=== PATIENT | female | born 1935 | race Caucasian/White ===

== ENCOUNTER 2021-11-21 10:30 | Outpatient (RCR) | payer MEDICARE, OTHER, SELFPAY ==
--- NOTE | 2021-11-01 12:37 | OT.OPOE ---
OT Outpatient Ortho Eval OT Outpatient Ortho Eval Start: 11/01/21 07:27 Freq: Status: Active Protocol: Document 11/01/21 10:17 AMB (Rec: 11/01/21 12:33 AMB [id number]) E-signed By Kailee Villar, OTR/L, CLT, DIETETIC AIDE OT OP Ortho Eval Details Type Type Eval Complexity Low Outpatient History/Precautions Insurance Information Insurance Information Medicare B Current Condition/Medical Diagnosis Referring Provider MARY Chappell Treatment Diagnosis Closed treatment of a closed, acute, nondisplaced, intra- articular left DR Date of Onset 07/29/21 Other Precautions White coat syndrome without diagnosis of hypertension ( Acute) R03.0 Osteoporosis (Acute 10/14/08) M81.0 Hyperlipidemia (Acute 10/14/08 ) E78.5 Hiatal hernia (Acute 05/23/12) K44.9 Fracture of distal end of left radius (Acute) S52.502A Colon polyp (Acute 02/14/09) K63.5 Medical Contraindications Osteoporosis Medical/Functional History Medical History Reviewed Yes Ortho Subjective Subjective Subjective Pt states she was adjusting her curtains on 07/29/21 and when stepping down from the stool, she turned and slipped, falling to the ground on her left hand. Pt was casted until 09/21/21. Pt states she think she messed up. She heard the doctor tell her to schedule an appointment for 6 weeks out, she thought she was supposed to wait to start therapy, but that was for her ortho recheck. Pt feels she is doing well, doesn't always were splint anymore, feels very little if any pain and feels her wrist is moving pretty well. Still avoiding lifting heavy things. 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 Pt arrived 25 min late for OT eval today as [facility] as she thought therapy was in that building. Pain Assessment Pain Present Pain Present Pain Reported Location Left Wrist Description Dull, Achy Intensity Mild Hand Pinch/Track Man Strength Hand Right Track Man Strength Position 1 (lbs) 45 Lateral Pinch Strength (lbs) 10 Three Point Pinch (lbs) 11 Left Track Man Strength Position 1 (lbs) 20 Lateral Pinch Strength (lbs) 7 Three Point Pinch (lbs) 6 Comments Comments Track Man and pinch strength testing on the LUE was painful more because of the OA in the CMC joint than wrist fx. 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 OT Problems Problems Problems Decreased Strength,Decreased Range of Motion,Decreased Fine Motor,Gripping,Pinching Other Problems Opening Containers Patient Potential Good Assessment Assessment Assessment Pt presents to OT with pain, weakness and mild limitation in AROM of the LUE wrist / hand. Pt has difficulty with opening containers, gripping and pinching activities. Pt will benefit from skilled OT intervention to address deficits and restore full, pain-free use of LUE. Occupational Therapy Treatment Plan - OP Potential Rehabilitation Potential Good Set Goals Goals Set with Patient Yes Goals Goals 1. Pt will be independent and compliant with HEP in order to resume full, pain-free use of the involved UE. 3 weeks 2. Pt will demonstrate full, pain-free AROM of the involved UE in order to improve ability to grasp and hold. 6 weeks 3. Pt will demonstrate pain- free dispatcher refinery and pinch strength comparable to the uninvolved side in order to improve functional grasp, hold, reach, and lifting ability needed to complete self-care, leisure tasks, and work activities. 8 weeks. Target Date 01/01/22 Progress set Treatment Plan Treatment Plan Evaluation,Edema Control,Joint Mobilization,Manual Therapy, Splinting,Therapeutic Exercise ,Therapeutic Activities,Self- Care/Home Management Expected Frequency 1x Week Expected Duration 6-8 Weeks Certification Certification I Certify That: Therapy Services Provided, Therapy Plan Established, Therapy Plan Reviewed
== END 2021-11-21 15:33 | disposition home or self-care (01) ==
PROVIDERS: PCP Internal Medicine; Visit Provider Physician Assistant Surgical
DX: M81.0 Age-related osteoporosis without current pathological fracture (principal)
CPT/HCPCS: 97110; 97165; 97535; X5282

== ENCOUNTER 2022-04-03 07:34 | Outpatient (CLI) | payer MEDICARE, OTHER, SELFPAY ==
[2022-04-03 11:01] LABS: Cholesterol* 214 mg/dL (90-199); HDL Cholesterol* 68 mg/dL (>=50); LDL Cholesterol Calculated 127 mg/dL (<100); Triglycerides* 95 mg/dL (40-149)
[2022-04-03 11:21] LABS: Vitamin D 25 Hydroxy* 38 ng/mL (30-80)
== END 2022-04-03 07:35 | disposition home or self-care (01) ==
LOC: NFLDREF 07:34
PROVIDERS: PCP Internal Medicine; Visit Provider Internal Medicine
DX: M81.0 Age-related osteoporosis without current pathological fracture (principal); E78.5 Hyperlipidemia, unspecified; I10 Essential (primary) hypertension
CPT/HCPCS: 80061; 82306

== ENCOUNTER 2022-05-08 09:18 | Outpatient (CLI) | payer MEDICARE, OTHER, SELFPAY ==
[2022-05-08 11:35] LABS: Chloride* 105 mmol/L (96-114); Sodium* 136 mmol/L (135-149)
[2022-05-08 11:36] LABS: Potassium* 3.9 mmol/L (3.6-5.1)
[2022-05-08 11:38] LABS: Carbon Dioxide* 25 mmol/L (20-32); Creatinine* 0.3 mg/dL (0.5-1.5); Estimated Glomerular Filt Rate 104 ml/min
[2022-05-08 11:39] LABS: Blood Urea Nitrogen* 17 mg/dL (7-30); Calcium* 9.5 mg/dL (8.4-10.6); Glucose* 98 mg/dL (60-115)
== END 2022-05-08 09:19 | disposition home or self-care (01) ==
LOC: NFLDREF 09:26
PROVIDERS: PCP Internal Medicine; Visit Provider Internal Medicine
DX: I10 Essential (primary) hypertension (principal)
CPT/HCPCS: 80048

== ENCOUNTER 2022-05-17 14:43 | Emergency (ER) | payer MEDICARE, OTHER, SELFPAY ==
[2022-05-17] VITALS (31 sets, daily range): BP systolic 156–203; BP diastolic 72–87; PULSE 79–98; RESP 18–20; TEMP 37.2–38.1; O2SAT 88–100; BMI 26.5
--- NOTE | 2022-05-17 14:55 | CRLHL7_ITS ---
For Patients: As a result of the Century Cures Act, medical imaging exams and procedure reports are released immediately into your electronic medical record. You may view this report before your referring provider. If you have questions, please contact your health care provider. Indication: Fall, loss of consciousness Technique: Volumetric multidetector CT images of the cervical spine were obtained without the administration of IV contrast. Comparison: None available Findings: The cervical vertebral body heights are grossly maintained with endplate Schmorl`s defects. There is anterolisthesis of C4 on C5 and C5 on C6. There is no displaced fracture or dislocation. There is mild to moderate degenerative disc disease with disc height loss and marginal osteophyte formation. Moderate to severe degenerative changes at the atlantoaxial joint are appreciated. There is moderate to severe facet arthrosis. The paraspinous soft tissues are grossly within normal limits. Impression: [id number] degenerative changes of the cervical spine without acute osseous abnormality. Please note that all CT scans at this facility use dose modulation, iterative reconstruction, and/or weight-based dosing when appropriate to reduce radiation dose to as low as reasonably achievable. Dictated by Luis Snow MD @ 05/17/2022 3:41:02 PM (Electronically Signed)
--- NOTE | 2022-05-17 14:55 | CRLHL7_ITS ---
For Patients: As a result of the Century Cures Act, medical imaging exams and procedure reports are released immediately into your electronic medical record. You may view this report before your referring provider. If you have questions, please contact your health care provider. Indication: Fall, loss of consciousness Technique: Volumetric multidetector CT images of the facial bones were obtained without the administration of IV contrast. Comparison: None available. Findings: There is demonstration of a small arachnoid cyst in the anterior left middle cranial fossa. Otherwise the visualized brain parenchyma is grossly preserved and attenuation. There is mild chronic polypoid mucosal thickening within the paranasal sinuses. No significant air-fluid levels are appreciated. There is marked periorbital, preseptal soft tissue swelling. The bony orbits are otherwise grossly intact. The zygomatic arches are grossly intact. The bilateral maxillae are intact. The pterygoid plates are grossly intact. There are impacted fractures of the nasal bones extending into the anterior bony nasal septum. There is an avulsion injury of the anterior nasal spine. The mandible is grossly well located. The partially visualized cervical spine is grossly intact without displaced fracture. Impression: Mildly impacted fractures of the nasal bones, anterior nasal spine and anterior bony nasal septum with moderate facial soft tissue swelling and periorbital soft tissue swelling. No other displaced facial bony injuries are appreciated. Please note that all CT scans at this facility use dose modulation, iterative reconstruction, and/or weight-based dosing when appropriate to reduce radiation dose to as low as reasonably achievable. Dictated by Luis Snow MD @ 05/17/2022 3:36:34 PM (Electronically Signed)
--- NOTE | 2022-05-17 14:55 | CRLHL7_ITS ---
For Patients: As a result of the Century Cures Act, medical imaging exams and procedure reports are released immediately into your electronic medical record. You may view this report before your referring provider. If you have questions, please contact your health care provider. Indication: Fall, loss of consciousness Technique: Volumetric multidetector CT images of the head were obtained without the administration of low osmolar intravenous contrast. Comparison: None available Findings: Overall, there is moderately limited evaluation of the frontal and anterior convexity vertex due to extensive motion artifact and streak artifact. There is no obvious subdural or epidural collection; however, subtle subarachnoid hemorrhages may not be excluded. There is no mass effect or midline shift. There is age-related cortical atrophy with mild sulcal widening and ex vacuo dilatation of the lateral ventricles. There are chronic small vessel disease changes in the subcortical and periventricular white matter without lost ball-white differentiation. There is marked periorbital, preseptal soft tissue swelling. Limited evaluation of the frontal bone due to extensive motion artifact. Otherwise, the bony calvarium is grossly intact. Minimal polypoid mucosal thickening in the left maxillary sinus with a mildly impacted fracture of the nasal bones and bony nasal septum. The mastoid air cells are well aerated. Impression: Overall, partially nondiagnostic exam due to extensive motion artifact along the anterior and bilateral cerebral convexities. Grossly, no large subdural or epidural hemorrhages are appreciated; however, subtle subarachnoid or intraparenchymal hemorrhages may not entirely be excluded. Otherwise, no definite acute intracranial abnormalities appreciated. Age-related and chronic small-vessel disease changes are seen. Consider further evaluation with repeat exam for improved characterization motion artifact affected areas. Please note that all CT scans at this facility use dose modulation, iterative reconstruction, and/or weight-based dosing when appropriate to reduce radiation dose to as low as reasonably achievable. Dictated by Luis Snow MD @ 05/17/2022 3:20:30 PM (Electronically Signed)
--- NOTE | 2022-05-17 15:01 | ED_ITS ---
HPI - General Adult General Chief complaint: Syncope/Fainted Stated complaint: Fall Time Seen by Provider: 05/17/22 14:47 History of Present Illness HPI narrative: This 86-year-old woman comes in for evaluation from a fall that occurred at about 6:00 a.m. this morning, 8 hours prior to arrival. She states that she was up to get coffee and became lightheaded. She fell onto her face. She states that she did have loss of consciousness. She lives alone at home. She was able to get up without assistance. She thought about calling for some kind of ride to be evaluated but there was no response. This was not a 911 call or ambulance call. She states that she talked with her son later and now presents here with bruising around both eyes and an injury to her upper lip. The patient does not complain of headache. She does have some pain in her right shoulder causing difficulty for moving her right arm. She is not on blood thinners. A trauma team activation was initiated because of the appearance of her injuries. She arrives here with increased blood pressure and a temperature at 100.6? F. She denies having any respiratory symptoms except for some nasal congestion. She does not report any dysuria symptoms. Related Data Home Medications Medication Instructions Recorded Confirmed calcium carb-ergocalciferol (vit tab PO ONCE 09/21/21 05/08/22 D2) 600 mg calcium-200 unit tablet multivitamin with minerals 1 tab PO ONCE 09/21/21 05/08/22 (Multiple Vitamin-Minerals tablet) Previous Rx's Medication Instructions Recorded omeprazole 20 mg capsule,delayed 20 mg PO DAILY #90 caps 02/22/22 release simvastatin 10 mg tablet 10 mg PO .Bedtime #90 tabs 04/05/22 valsartan 160 1 tab PO QDAY #90 tabs 05/08/22 mg-hydrochlorothiazide 25 mg tablet Allergies Allergy/AdvReac Type Severity Reaction Status Date / Time Sulfa drugs Allergy Mild Unknown Uncoded 05/08/22 08:56 Review of Systems Status of ROS: Reports: 10 or more systems reviewed and unremarkable except as noted in History and below Narrative: Constitutional: No fevers, no weight gain or loss. Eyes: No discharge. No vision changes. HENT: No congestion, no sore throat, no ear pain. Cardiovascular: No chest pain, no palpitations. Respiratory: No shortness of breath, no wheezes, no cough. Gastrointestinal: No abdominal pain, no vomiting, no diarrhea. Genitourinary: No dysuria, no hematuria. Musculoskeletal: Right shoulder pain with associated decreased range of motion of her right arm. Skin: No rashes, no pruritis. Neurological: No dizziness, weakness, sensory change, speech change. Endo/Heme/Allergies: No bruising or bleeding. No polydipsia. Pysch: no suicidality, no anxiety, no insomnia. All other systems reviewed and are negative. [facility] Medical History (Updated 05/17/22 @ 16:58 by Chris Hines MD) History of colon polyps Surgical History (Updated 04/05/22 @ 10:21 by Sarah Lozano MD) History of cataract surgery Varicose veins of other specified sites (10/14/08) Family History Maternal Grandmother Thyroid cancer Paternal Grandmother Ovarian cancer Aunt Cancer Father Depression Mother No problems noted. Family/Other Ovarian cancer Other Breast cancer Heart problem High blood pressure Social History , MONICA) Narrative: Marital Status: Occupation: clinical laboratory scientists Alcohol Use: No Recreational Drug Use: No Smoking Status: Never smoker Do you use any of these nicotine containing products: None Second hand tobacco smoke exposure: No How often do you have a drink containing alcohol: never AUDIT-C Alcohol total score: 0 Non-prescribed substance use: denies use Little interest or pleasure in doing things: not at all Feeling down, depressed, or hopeless: several days Exam Narrative: Exam Narrative: Constitutional: Well-developed, well-nourished, no acute distress. HEENT: She has bruising around her eyes bilaterally. There is a small laceration on the inner and outer aspect of her upper lip. No scalp hematoma or laceration. Neck: Normal range of motion. Nontender. Supple. Heart: Regular. No murmurs. Normal rate. Intact distal pulses. Lungs: Clear to auscultation. No chest discomfort. No wheezes, rhonchi, or rales. Abdomen: Normal bowel sounds. Nontender. No rebound tenderness. Genitalia: Deferred. Back: No midline tenderness. Normal range of motion. Extremities: Pain with movement of her right arm. She reports diffuse tenderness in the anterior aspect of her right shoulder. There is no sign of deformity. Skin: Intact. No rash. Warm. No erythema or pallor. Neurologic: No altered sensation. No weakness. Alert and oriented. No facial asymmetry. Tongue is midline. Landscape Manager strength is equal bilaterally. Finge r-to-nose is normal. She is able to raise each leg to my hand. Psychiatric: No suicidality. No anxiety or depression. No insomnia. Nursing notes and vitals signs are reviewed. Const: Vital Signs, click to edit/add: Vital Signs - 24 hr 05/17/22 14:46 05/17/22 15:16 05/17/22 15:18 Temperature 100.6 F H Pulse Rate 93 89 Pulse Rate [Apical ] 98 Respiratory Rate 20 Blood Pressure 167/85 H Blood Pressure [Ri ght Upper Arm] 203/81 H Pulse Oximetry 97 97 97 05/17/22 15:20 05/17/22 15:22 05/17/22 15:23 Temperature Pulse Rate 90 92 90 Pulse Rate [Apical ] Respiratory Rate Blood Pressure 166/72 H Blood Pressure [Ri ght Upper Arm] Pulse Oximetry 97 97 98 05/17/22 15:33 05/17/22 15:40 05/17/22 15:41 Temperature Pulse Rate 84 83 85 Pulse Rate [Apical ] Respiratory Rate Blood Pressure 164/77 H Blood Pressure [Ri ght Upper Arm] Pulse Oximetry 99 98 98 05/17/22 15:42 05/17/22 15:43 05/17/22 15:50 Temperature Pulse Rate 85 82 79 Pulse Rate [Apical ] Respiratory Rate Blood Pressure 156/74 H Blood Pressure [Ri ght Upper Arm] Pulse Oximetry 98 96 99 05/17/22 15:52 05/17/22 15:54 05/17/22 16:00 Temperature Pulse Rate 83 82 Pulse Rate [Apical ] Respiratory Rate Blood Pressure 164/83 H Blood Pressure [Ri ght Upper Arm] Pulse Oximetry 98 98 05/17/22 16:02 05/17/22 16:17 05/17/22 16:18 Temperature Pulse Rate 83 84 Pulse Rate [Apical ] Respiratory Rate Blood Pressure 160/79 H 183/87 H Blood Pressure [Ri ght Upper Arm] Pulse Oximetry 97 97 05/17/22 16:20 05/17/22 16:22 05/17/22 16:23 Temperature Pulse Rate 85 82 83 Pulse Rate [Apical ] Respiratory Rate Blood Pressure 168/75 H Blood Pressure [Ri ght Upper Arm] Pulse Oximetry 100 99 99 05/17/22 16:30 05/17/22 16:32 Temperature 99.1 F Pulse Rate 86 86 Pulse Rate [Apical ] Respiratory Rate Blood Pressure 159/87 H Blood Pressure [Ri ght Upper Arm] Pulse Oximetry 98 98 Course Vital Signs Vital signs: Initial Vital Signs Temperature 100.6 F H 05/17/22 14:46 Temperature Source Temporal Artery Scan 05/17/22 14:46 Pulse Rate 98 05/17/22 14:46 Pulse Rhythm 05/17/22 14:46 Respiratory Rate 20 05/17/22 14:46 Blood Pressure 203/81 H 05/17/22 14:46 Blood Pressure Mean 121 05/17/22 14:46 Blood Pressure Position Supine 05/17/22 14:46 Pulse Oximetry 97 05/17/22 14:46 Vital Signs Temperature 100.6 F H 05/17/22 14:46 Pulse Rate 98 05/17/22 14:46 Respiratory Rate 20 05/17/22 14:46 Blood Pressure 203/81 H 05/17/22 14:46 Pulse Oximetry 97 05/17/22 14:46 Temperature 99.1 F 05/17/22 16:32 Pulse Rate 86 05/17/22 16:32 Respiratory Rate 20 05/17/22 14:46 Blood Pressure 159/87 H 05/17/22 16:32 Pulse Oximetry 98 05/17/22 16:32 Medical Decision Making MDM Narrative Medical decision making narrative: Primary Survey: Vital Signs are within normal limits. Airway: Open. Breathing: Easy. Circulation: no obvious bleeding; normal capillary refill. Disability: GCS is 15. Normal pupillary response and motor movements. Secondary Survey: Head: Bruising around both eyes, not completely typical of raccoon eyes type bruising. No sign of hematoma. Small laceration in the upper lip. Neck: No midline tenderness. ROM intact. Chest: Non tender. No external signs of trauma. Abdomen: Non tender. No rebound tenderness. Normal bowel sounds. Pelvis/Genitals: No tenderness to A/P and lateral stress. No blood at the urethral meatus. Extremities: Atraumatic. Back: No midline tenderness. No sign of injury. Primary and Secondary surveys are completed. The patient's GCS is 15. This patient comes in for evaluation of injuries from a fall that occurred early this morning. CT imaging of the head and C-spine returns with no acute findings. Facial bones show evidence of a minimally displaced nasal fracture. Her shoulder x-ray also is negative. The patient did arrive with a temperature at 100.6? but when this was read checked her temperature was found to be at 99.1. She had not had any medicine to reduce her temperature to bring about this 2nd reading. An IV was established and labs were drawn. Her lactate and white count return in normal range. She is not tripping triggers suspicious for sepsis. Blood cultures were obtained and results are pending nevertheless. At the time of discharge the patient appears safe for outpatient management. The treatment plan is reviewed along with written and verbal return precautions. Reasons to return and the importance of close followup were also reviewed. Lab Data Labs: Lab Results 05/17/22 05/17/22 05/17/22 Range/Units 14:53 15:24 15:24 WBC 5.65 (4.50-11.00) K/uL RBC 4.26 (4.00-5.20) m/uL Hgb 13.5 (12.0-16.0) gm/dL Hct 38.6 (33.0-51.0) % MCV 91 (80-100) fL MCH 32 (26-34) pg MCHC 35 (32-36) gm/dL RDW Coeff of Braxton 11.7 (11.5-15.5) % Plt Count 76 L (140-440) K/uL Neut % (Auto) 87.8 H (42.0-72.0) % Lymph % (Auto) 8.1 L (20-44) % [place] % (Auto) 3.4 (0.0-11.0) % Eos % (Auto) 0.0 (0.0-7.0) % Baso % (Auto) 0.2 (0.0-3.0) % Neut # (Auto) 5.00 (1.7-7.0) K/uL Lymph # (Auto) 0.50 L (0.90-2.90) K/uL [place] # (Auto) 0.20 (0.00-0.90) K/UL Eos # (Auto) 0.00 (0.00-0.50) K/uL Baso # (Auto) 0.01 (0.00-0.30) K/uL Sodium 129 L (135-149) mmol/L Potassium 3.8 (3.6-5.1) mmol/L Chloride 98 (96-114) mmol/L Carbon Dioxide 23 (20-32) mmol/L BUN 19 (7-30) mg/dL Creatinine 0.3 L (0.5-1.5) mg/dL Estimated Creat Clear 31.04 Estimated GFR 104 ml/min Glucose 148 H (60-115) mg/dL Lactate (0.5-1.9) mmol/L Calcium 8.8 (8.4-10.6) mg/dL Urine Color (Yellow) Urine Appearance (Clear) Urine pH (5.0-8.5) Ur Specific [place] (1.000-1.030) Urine Protein (Negative) Urine Glucose (UA) (Negative) Urine Ketones (Negative) Urine Blood (Negative) Urine Nitrite (Negative) Urine Bilirubin (Negative) Urine Urobilinogen (0.2-1.0) Ur Leukocyte Esterase (Negative) Urine RBC (0-2) Urine WBC (0-5) Ur Squamous Epith Cells (None-Few) Urine Bacteria (None) Urine Mucus (None) SARS-CoV-2 (PCR) Negative SARS-CoV-2 (Negative) 05/17/22 05/17/22 Range/Units 15:24 16:21 WBC (4.50-11.00) K/uL RBC (4.00-5.20) m/uL Hgb (12.0-16.0) gm/dL Hct (33.0-51.0) % MCV (80-100) fL MCH (26-34) pg MCHC (32-36) gm/dL RDW Coeff of Braxton (11.5-15.5) % Plt Count (140-440) K/uL Neut % (Auto) (42.0-72.0) % Lymph % (Auto) (20-44) % [place] % (Auto) (0.0-11.0) % Eos % (Auto) (0.0-7.0) % Baso % (Auto) (0.0-3.0) % Neut # (Auto) (1.7-7.0) K/uL Lymph # (Auto) (0.90-2.90) K/uL [place] # (Auto) (0.00-0.90) K/UL Eos # (Auto) (0.00-0.50) K/uL Baso # (Auto) (0.00-0.30) K/uL Sodium (135-149) mmol/L Potassium (3.6-5.1) mmol/L Chloride (96-114) mmol/L Carbon Dioxide (20-32) mmol/L BUN (7-30) mg/dL Creatinine (0.5-1.5) mg/dL Estimated Creat Clear Estimated GFR ml/min Glucose (60-115) mg/dL Lactate 1.2 (0.5-1.9) mmol/L Calcium (8.4-10.6) mg/dL Urine Color Yellow (Yellow) Urine Appearance Clear (Clear) Urine pH 6.0 (5.0-8.5) Ur Specific [place] 1.020 (1.000-1.030) Urine Protein 1+ A (Negative) Urine Glucose (UA) Negative (Negative) Urine Ketones 2+ A (Negative) Urine Blood Trace-intact A (Negative) Urine Nitrite Negative (Negative) Urine Bilirubin Negative (Negative) Urine Urobilinogen 0.2 (0.2-1.0) Ur Leukocyte Esterase Negative (Negative) Urine RBC 0-2 (0-2) Urine WBC 0-2 (0-5) Ur Squamous Epith Cells Few (None-Few) Urine Bacteria None (None) Urine Mucus Few A (None) SARS-CoV-2 (PCR) (Negative) Imaging Data CT scan - head: Radiologist's impression: Overall, partially nondiagnostic exam due to extensive motion artifact along the anterior and bilateral cerebral convexities. Grossly, no large subdural or epidural hemorrhages are appreciated; however, subtle subarachnoid or intraparenchymal hemorrhages may not entirely be excluded. Otherwise, no definite acute intracranial abnormalities appreciated. Age-related and chronic small-vessel disease changes are seen. Consider further evaluation with repeat exam for improved characterization motion artifact affected areas. CT Face: Radiologist's impression: Mildly impacted fractures of the nasal bones, anterior nasal spine and anterior bony nasal septum with moderate facial soft tissue swelling and periorbital soft tissue swelling. No other displaced facial bony injuries are appreciated. CT Cervical Spine: Radiologist's impression: [id number] degenerative changes of the cervical spine without acute osseous abnormality. XR R Shoulder: Radiologist's impression: No sign of acute injury. ECG Data Attestation: I personally reviewed and interpreted this ECG as follows: Interpretation: Sinus tachycardia, rate 102 beats per minute. There are no specific ST or T- wave abnormalities. Discharge Plan Discharge Clinical Impression: Closed fracture nasal bone, Syncope Patient Disposition: Home w/ Parent or Adult Condition: Stable Additional Instructions: Continue current plans. Use [id number] medicines as needed and directed. Follow up with MD to review medications. Return if recurrent or worsening symptoms happen. Prescriptions: No Action simvastatin 10 mg tablet 10 mg PO .Bedtime Qty: 90 3RF valsartan-hydrochlorothiazide 160-25 mg tablet 1 tab PO QDAY Qty: 90 3RF calcium carbonate-vitamin D2 600 mg calcium- 200 unit tablet PO ONCE Multiple Vitamin-Minerals Tablet 1 tab PO ONCE omeprazole 20 mg capsule,delayed release(DR/EC) 20 mg PO DAILY Qty: 90 3RF Rx Instructions: take on empty stomach 30-45 min before first meal of the day Follow Up/Referrals: Sarah Lozano MD [Primary Care Provider] - Stand Alone Forms: [employer] Info Instructions
--- NOTE | 2022-05-17 15:03 | CRLHL7_ITS ---
For Patients: As a result of the Cures Act, medical imaging exams and procedure reports are released immediately into your electronic medical record. You may view this report before your referring provider. If you have questions, please contact your health care provider. Indication: Fall, right shoulder pain.. Technique: Right shoulder, 3 views. Comparison: None. Findings: Bones: Alignment is normal. No fractures or bone lesions. Diffuse demineralization of the visualized bones. Joint spaces: Unremarkable. Soft tissues: Unremarkable. Impression: No sign of acute injury. Dictated by Jeremie Delvalle MD @ 05/17/2022 3:39:47 PM (Electronically Signed)
[2022-05-17 15:29] LABS: Lactate* 1.2 mmol/L (0.5-1.9)
[2022-05-17 15:34] LABS: Basophils Absolute Auto 0.01 K/uL (0.00-0.30); Basophils Percent Auto 0.2 % (0.0-3.0); Hematocrit 38.6 % (33.0-51.0); Hemoglobin* 13.5 gm/dL (12.0-16.0); Immature Granulocytes Abs Auto 0.03 K/uL (0.00-0.30); Immature Granulocytes Pct Auto 0.5 %; Lymphocytes Percent Auto 8.1 % (20-44); Mean Corpuscular HGB Conc 35 gm/dL (32-36); Mean Corpuscular Hemoglobin 32 pg (26-34); Mean Corpuscular Volume 91 fL (80-100); Monocytes Percent Auto 3.4 % (0.0-11.0); Neutrophils Percent Auto 87.8 % (42.0-72.0); Platelet Count* 76 K/uL (140-440); RDW Coefficient of Variation % 11.7 % (11.5-15.5); Red Blood Count 4.26 m/uL (4.00-5.20); White Blood Count* 5.65 K/uL (4.50-11.00)
[2022-05-17 15:35] LABS: Slide Review Reflex No
[2022-05-17 15:39] LABS: SARS PCR* Negative SARS-CoV-2 (Negative)
[2022-05-17 15:46] LABS: Chloride* 98 mmol/L (96-114); Potassium* 3.8 mmol/L (3.6-5.1); Sodium* 129 mmol/L (135-149)
[2022-05-17 15:49] LABS: Blood Urea Nitrogen* 19 mg/dL (7-30); Carbon Dioxide* 23 mmol/L (20-32); Creatinine* 0.3 mg/dL (0.5-1.5); Est. Creatinine Clearance* 31.04; Estimated Glomerular Filt Rate 104 ml/min; Glucose* 148 mg/dL (60-115)
[2022-05-17 15:50] LABS: Calcium* 8.8 mg/dL (8.4-10.6)
[2022-05-17 16:26] LABS: Appearance Urine Clear (Clear); Bilirubin Urine Negative (Negative); Blood Urine Trace-intact (Negative); Color Urine Yellow (Yellow); Glucose Urine Negative (Negative); Ketones Urine 2+ (Negative); Leukocyte Esterase Urine Negative (Negative); Nitrite Urine Negative (Negative); Protein Urine 1+ (Negative); Urobilinogen Urine 0.2 (0.2-1.0)
[2022-05-17 16:36] LABS: Mucus Urine Few; RBC Urine 0-2 (0-2); Squamous Epithelial Cell Urine Few (None-Few); WBC Urine 0-2 (0-5)
[2022-05-17] MEDS: ACETAMINOPHEN 500 MG TABLET 1000 MG PO (16:41)
== END 2022-05-17 17:24 | disposition home or self-care (01) ==
PROVIDERS: Emergency Provider Emergency Medicine Emergency Medical Services; PCP Internal Medicine
DX: S02.2XXA Fracture of nasal bones, initial encounter for closed fracture (principal); R55 Syncope and collapse
CPT/HCPCS: 36415; 70450; 70486; 72125; 73030; 80048; 81001; 83605; 85025; 87040; 87635; 93005; 99284; 99291; A9270

== ENCOUNTER 2022-05-21 13:36 | Outpatient (CLI) | payer MEDICARE, OTHER, SELFPAY ==
[2022-05-21 17:11] LABS: Albumin* 3.8 g/dL (3.3-5.0)
[2022-05-21 17:14] LABS: Alanine Aminotransferase* 53 U/L (4-35); Alkaline Phosphatase* 66 U/L (40-150); Aspartate Amino Transferase* 49 U/L (12-35); Bilirubin Direct* 0.1 mg/dL (0.0-0.5); Bilirubin Total* 0.5 mg/dL (0.1-1.5); Magnesium* 1.9 mg/dL (1.5-2.6); Total Protein* 6.8 g/dL (6.0-8.3)
[2022-05-21 17:56] LABS: TSH With Reflex to FT4* < 0.015 uIU/mL (0.270-4.200)
== END 2022-05-21 13:37 | disposition home or self-care (01) ==
PROVIDERS: PCP Internal Medicine; Visit Provider Internal Medicine
DX: R55 Syncope and collapse (principal); I10 Essential (primary) hypertension; E78.5 Hyperlipidemia, unspecified
CPT/HCPCS: 80076; 83735; 84439; 84443

== ENCOUNTER 2022-06-08 08:36 | Outpatient (CLI) | payer MEDICARE, OTHER, SELFPAY | END 2022-06-08 08:37 | disposition home or self-care (01) | LOC: RAD 08:37 | PROVIDERS: PCP Internal Medicine; Visit Provider Internal Medicine | DX: R55 Syncope and collapse (principal); I34.0 Nonrheumatic mitral (valve) insufficiency | CPT/HCPCS: 93306 ==

== ENCOUNTER 2022-06-22 13:45 | Outpatient (CLI) | payer MEDICARE, OTHER, SELFPAY ==
--- NOTE | 2022-06-22 14:00 | CRLHL7_ITS ---
For Patients: As a result of the Cures Act, medical imaging exams and procedure reports are released immediately into your electronic medical record. You may view this report before your referring provider. If you have questions, please contact your health care provider. BILATERAL SCREENING MAMMOGRAM WITH COMPUTER-AIDED DETECTION AND TOMOSYNTHESIS TECHNIQUE: CC and MLO views were obtained. These mammographic images have been obtained using full-field digital technique. These mammographic images were interpreted with the benefit of computer-aided detection. Breast Tomosynthesis was used in this interpretation. COMPARISON FILM: 04/26/21, 09/09/18, 09/10/17. FINDINGS: There are scattered areas of fibroglandular density IMPRESSION: There is no radiographic evidence for malignancy. ASSESSMENT: BI-RADS Category 1: Negative RECOMMENDATION: Routine screening mammogram in 1 year. A lay language report of this examination will be provided to the patient. Louie Marion M.D. Diagnostic Radiologist [email or web address] ELBERT/jelani Transcribed: 2:39 p.mTanya palomares/Dictated by: Louie Marion MD @ 06/25/2022 8:36:00 AM (Electronically Signed)
== END 2022-06-22 13:46 | disposition home or self-care (01) ==
LOC: MAMMO 13:46
PROVIDERS: PCP Internal Medicine; Visit Provider Internal Medicine
DX: Z12.31 Encounter for screening mammogram for malignant neoplasm of breast (principal)
CPT/HCPCS: 77063; 77067

== ENCOUNTER 2022-12-13 10:00 | Outpatient (RCR) | payer MEDICARE, OTHER, SELFPAY ==
--- NOTE | 2022-12-06 13:58 | PT.OPEX ---
PT [facility] PT [facility] Eval Start: 12/06/22 12:35 Freq: Status: Active Protocol: Document 12/06/22 12:35 CRP (Rec: 12/06/22 13:56 CRP [id number]) E-signed By Jordan Jackson PT Physical Therapy Outpatient Evaluation Insurance Information Recert Due Date 03/06/23 Insurance Name Medicare B Medical Diagnosis Mechanical Low back pain Referring MD Dr Lozano Subjective Subjective Pt c/o LBP that started about a week ago. Started after moving some stuff around in her garage. Pain is across the low back. Is now tacking tylenol 3x/day as directed by her Dr. There was no pain while she was working in her garage. Pain came on the next morning. Pain now is waking her up in the middle of the night. Pain is most noticeable with bending and lifting. Walking is OK and sitting is not painful. Pain can fluctuate throughout the day. Pain range from 2-8/10. Pt reports she is more sedentary than she should be. Normally she would be walking 20-60 minutes per day but now she has been holding off on walking for exer. Needs to do stairs almost side ways because it is painful going straight up and down the stiars. Pain Comments 2-8/10 Current Work Status Retired Objective Range of Motion Trunk ROM Flex min dec with LBP Ext isaak dec with LBP R SB painful on R L SB min dec Hip ROM WNL bilat - pt had times of sharp sudden pains going in and out of L hip flex/ext Strength R LE WNL L hip flex - severe LBP - no further MMT for L LE Palpation Pain along R SI and at lower lumbar Posture Pt shows posture WNL - Transitioning from one position to another created significant pain sharp stabbing pains Functional Test Performed & Score Sit to stand - WNL Sit<> Supine - moments of severe pain Scooting in bed - moments of severe pain Assessment Assessment/Impression Pt presents to the clinic with signs and sxs consistent with mechanical LBP. Pain most limiting with transitional movements without any specific exercise preference pattern. At this time it was difficult getting her progressing with exer as she was struggling with moments of severe-sudden- stabbing pains at the low back . PT will progress slowly with rehab as able. A message was left for Dr Lozano in regards to the degree at which Sofía is struggling with these fdwvxm-jownxg-ygegtsiw pains. Primary Functional Limitations Transitional movements Gait Plan of Care Rehabilitation Potential Good Physical Therapy Goals 1. Pt will complete HEP with 100% independence in 4 weeks 2. Pt will return to her normal walking program in 8 weeks 3. 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
== END 2023-04-08 11:11 | disposition home or self-care (01) ==
PROVIDERS: PCP Internal Medicine; Visit Provider Internal Medicine
DX: M54.59 Other low back pain (principal); Z51.89 Encounter for other specified aftercare
CPT/HCPCS: 97110; 97162

== ENCOUNTER 2023-04-03 08:21 | Outpatient (CLI) | payer MEDICARE, OTHER, SELFPAY ==
--- OUTSIDE RECORDS SUMMARY | 2023-04-05 10:33 | XMS_ITS | Clinical Summary ---
Author Name Unknown Organization [facility] Address [place], [place] [address] Care Team Providers Care Nursing Resident Name Role Phone Sarah Lozano MD Primary Care Provider [phone]- [phone] Encounters Date Type Department Care Team Description 03/28/2023 8:00 AM DIRECTOR OF EMPLOYEE DEVELOPMENT Office Visit [facility] [address] [place] [address] [facility] 03/28/2023 Travel 03/01/2023 8:00 AM DIRECTOR OF EMPLOYEE DEVELOPMENT Office Visit [facility] [address] [place] [address] [employer] 03/01/2023 Travel 02/08/2023 8:00 AM DIRECTOR OF EMPLOYEE DEVELOPMENT Office Visit [facility] [address] [place] [address] [facility] [facility] (Fitting) 02/08/2023 Travel 01/17/2023 9:00 AM CDT Office Visit [facility] [address] [place] [address] [employer] (Consultation) 01/17/2023 Travel from Last 3 Months Social History Tobacco Use Types Packs/Day Years Used Date Smoking Tobacco: Never Assessed Social Connections Answer Date Recorded Frequency of Communication with Friends and Fami ly Not on file 07/13/2022 Sex and Gender Information Value Date Recorded Sex Assigned at Not on file Gender Identity Not on file Sexual Orientation Not on file Plan of Treatment Health Maintenance Due Date Last Done Comments Tdap 08/11/1946 Depression screening for age 12+ 1948 BMI (ht and wt on same day) for age 18+ 1954 Tetanus booster 1956 Zoster (shingles) series for age 50+ (1 of 2) 1986 DEXA/DXA scan for age 65+ 2001 Medicare Wellness for age 65+ 2001 Pneumococcal series for age 65+ (1 of 1 - PCV) 2001 Influenza for age 65+ 11/23/2022 COVID-19 vaccine series Completed 01/15/20 23, 07/30/2022, 12/20/2021, Additional history exists Care Teams Nursing Resident Relationship Specialty Start Date End Date Sarah Lozano MD [address] [place] [address] PCP - General Internal Medicine 08/23/16
== END 2023-04-03 08:22 | disposition home or self-care (01) ==
LOC: NFLDREF 04-05 10:31
PROVIDERS: PCP Internal Medicine; Referring Provider Internal Medicine; Visit Provider Internal Medicine
DX: I10 Essential (primary) hypertension (principal); E78.5 Hyperlipidemia, unspecified; M85.80 Other specified disorders of bone density and structure, unspecified site
CPT/HCPCS: 80048; 80061; 82306

== ENCOUNTER 2023-06-27 12:26 | Outpatient (CLI) | payer MEDICARE, OTHER, SELFPAY ==
--- NOTE | 2023-06-27 13:00 | XR_ITS ---
Patient: MICHELLE JAMES Facility:?[facility] Patient ID:?[id number] Site Patient ID:?[id number]. Site :?[id number] Study:?DEXA-Bone Density -06/27/2023 3:05:39 PM Ordering Physician:COREEN Final Report: DXA BONE MINERAL DENSITY STUDY Reason for exam: Osteoporosis. Current height (in): 60.5. Weight (lb): 125. Menopause age: 46. Ethnicity: White. 1. Have you had a previous hip or vertebral fracture? No. 2. Have you had any fractures during your adult life which did not result from significant trauma (e.g., auto accident)? No. 3. Did either of your parents have a hip fracture? No. 4. Do you smoke? No. 5. Have you ever taken Glucocorticoids? No. 6. Do you have rheumatoid arthritis? No. 7. Do you have secondary osteoporosis? No. 8. Do you drink 3 or more alcoholic drinks per day? No. 9. Are you being treated for osteoporosis? Yes. 10. Have you ever taken any of the following medications: Actonel, Evista, Fosamax, Miacalcin, Reclast, Boniva, Forteo, HRT (i.e. estrogen/hormone therapy), Protelos, Prolia, Vitamin D, Calcium, other ? please specify. ANSWER: Yes, Fosamax, vitamin D and calcium. 11. Do you have any of the following medical conditions: Anorexia or bulimia, asthma or emphysema, end stage renal disease, hyperparathyroidism, any seizure disorders, cancer, inflammatory bowel diseases, hysterectomy, other ? please specify. ANSWER: No. 12. What was your maximum height (inches)? 62. 13. Do you perform weight bearing exercise regularly? Yes. 14. Do you regularly consume dairy products? Yes. 15. Do you drink caffeinated beverages? Yes. 16. At what age did your period start? 10.5. 17. Are you premenopausal? No. 18. How many full term pregnancies have you had? 3. 19. Have you ever missed your period for more than 6 months in a row (not including or menopause)? No. TECHNIQUE: Bone mineral density study was performed using the [employer]. FINDINGS: The results of the study expressed as bone mineral density (BMD) are as follows: Lumbar spine L1 to L4: BMD: 0.748 g/cm2. T-score: -2.7. Z-score: 0.2. Neck Left: BMD: 0.686 g/cm2. T-score: -1.5. Z-score: 1.1. Right: BMD: 0.620 g/cm2. T-score: -2.1. Z-score: 0.5. Total Left: BMD: 0.763 g/cm2. T-score: -1.5. Z-score: 0.9. Right: BMD: 0.777 g/cm2. T-score: -1.4. Z-score: 1.0. IMPRESSION: Osteoporosis. *Comparison exams done prior to 08/2019 were performed on different unit, [facility]. COMPARISON: Compared with scan of 04/26/2021, the bone mineral density has decreased by 8.5 percent at the spine and no change at 0.0 percent at the hip. Compared with scan of 09/05/2017, the bone mineral density has increased by 2.5 percent at the spine and increased by 1.5 percent at the hip. Louie Marion M.D. Diagnostic Radiologist [email or web address] ELBERT/sp D& Transcribed: 5:39 p.m. SP/Dictated by: Louie Marion MD @ 06/28/2023 1:43:00 PM Signed by:Masha Marion MD @06/28/2023 6:06:12 PM (Electronic Signature)
--- NOTE | 2023-06-27 13:40 | MM_ITS ---
Patient: MICHELLE JAMES Facility:?[facility] Patient ID:?[id number] Site Patient ID:?[id number]. Site :?[id number] Study:?XRay-Breast Bilateral 3D W/CAD-06/27/2023 1:48:12 PM Ordering Physician:Sarah Pickering Final Report: BILATERAL SCREENING MAMMOGRAM WITH COMPUTER-AIDED DETECTION AND TOMOSYNTHESIS TECHNIQUE: CC and MLO views were obtained. These mammographic images have been obtained using full-field digital technique. These mammographic images were interpreted with the benefit of computer-aided detection. Breast Tomosynthesis was used in this interpretation. COMPARISON FILM: 06/22/22, 04/26/21, 09/09/18. FINDINGS: There are scattered areas of fibroglandular density. IMPRESSION: There is no radiographic evidence for malignancy. ASSESSMENT: BI-RADS Category 1: Negative RECOMMENDATION: Routine screening mammogram in 1 year. A lay language report of this examination will be provided to the patient. Louie Marion M.D. Diagnostic Radiologist [email or web address] DSM/sp R& Transcribed: 12:03 p.m. SP/Dictated by: Louie Marion MD @ 06/28/2023 10:35:00 AM Signed by:Masha Marion MD @06/28/2023 12:07:00 PM (Electronic Signature)
== END 2023-06-27 12:27 | disposition home or self-care (01) ==
LOC: RAD 12:27
PROVIDERS: PCP Internal Medicine; Visit Provider Internal Medicine
DX: Z12.31 Encounter for screening mammogram for malignant neoplasm of breast (principal); M81.0 Age-related osteoporosis without current pathological fracture
CPT/HCPCS: 77063; 77067; 77080

== ENCOUNTER 2024-04-15 07:38 | Outpatient (CLI) | payer MEDICARE, OTHER, SELFPAY | END 2024-04-15 07:39 | disposition home or self-care (01) | LOC: NFLDREF 04-24 08:18 | PROVIDERS: PCP Internal Medicine; Referring Provider Internal Medicine; Visit Provider Internal Medicine | DX: I10 Essential (primary) hypertension (principal); M85.80 Other specified disorders of bone density and structure, unspecified site; E78.5 Hyperlipidemia, unspecified | CPT/HCPCS: 80048; 80061; 82306 ==

== ENCOUNTER 2024-07-24 07:59 | Outpatient (CLI) | payer MEDICARE, OTHER, SELFPAY ==
--- NOTE | 2024-07-24 08:15 | CRLHL7_ITS ---
For Patients: As a result of the Century Cures Act, medical imaging exams and procedure reports are released immediately into your electronic medical record. You may view this report before your referring provider. If you have questions, please contact your health care provider. INDICATION: BILATERAL SCREENING MAMMOGRAM, ASYMPTOMATIC 88 Y/O FEMALE COMPARISON: 06/27/23, 06/22/22, 04/26/21 TECHNIQUE: CC and MLO views were obtained. These mammographic images have been obtained using full-field digital technique. These mammographic images were interpreted with the benefit of computer aided detection and tomosynthesis. BREAST COMPOSITION: There are scattered areas of fibroglandular density. FINDINGS: No suspicious findings. ASSESSMENT: BI-RADS 1 Negative RECOMMENDATION: Annual screening mammogram. A lay language report of this examination will be provided to the patient. Dictated by: Louie Marion MD @ 07/28/2024 12:18:21 (Electronically Signed)
== END 2024-07-24 08:00 | disposition home or self-care (01) ==
LOC: MAMMO 08:00
PROVIDERS: PCP Internal Medicine; Visit Provider Internal Medicine
DX: Z12.31 Encounter for screening mammogram for malignant neoplasm of breast (principal)
CPT/HCPCS: 77063; 77067

== ENCOUNTER 2024-10-08 08:05 | Outpatient (CLI) | payer MEDICARE, OTHER, SELFPAY | END 2024-10-08 08:06 | disposition home or self-care (01) | PROVIDERS: PCP Internal Medicine; Visit Provider Family Medicine | DX: S09.93XA Unspecified injury of face, initial encounter (principal); W18.30XA Fall on same level, unspecified, initial encounter; Y92.008 Other place in unspecified non-institutional (private) residence as the place of occurrence of the external cause | CPT/HCPCS: A0425; A0427 ==

== ENCOUNTER 2024-10-08 08:39 | Emergency (ER) | payer MEDICARE, OTHER, SELFPAY ==
[2024-10-08] VITALS (23 sets, daily range): BP systolic 159–205; BP diastolic 79–124; PULSE 81–93; RESP 10–29; TEMP 36.1; O2SAT 96–99; BMI 24.7
--- OUTSIDE RECORDS SUMMARY | 2024-10-08 08:41 | XMS_ITS | Clinical Summary ---
Author Organization [employer] [facility] Address [address] [place] [id number] Care Team Providers Care Waistline Joiner Name Role Phone Sarah Lozano MD Primary Care Provider +1- [phone] Social History Tobacco Use Types Packs/Day Years Used Date Smoking Tobacco: Never Assessed Social Connections Answer Date Recorded Frequency of Communication with Friends and Fami ly Not on file 07/13/2022 Comments Unknown Sex and Gender Information Value Date Recorded Sex Assigned at Not on file Legal Sex Female 6:31 AM PACKAGE PICK UP Gender Identity Not on file Sexual Orientation Not on file Plan of Treatment Health Maintenance Due Date Last Done Comments Tetanus booster 08/11/1946 Depression screening for age 12+ 1948 BMI (ht and wt on same day) for age 18+ 1954 Pneumococcal series for age 50+ (1 of 1 - PCV) 1986 Zoster (shingles) series for age 50+ (1 of 2) 1986 DEXA/DXA scan for age 65+ 2001 Medicare Wellness for age 65+ 2001 RSV vaccine for adults or (1 - 1-dose 75+ series) 08/11/2011 COVID-19 vaccine series ( season) 2024 01/08/2024, 07/16/2023, 01/14/2023, Additional history exists Influenza Vaccine (#1) 2024 Hepatitis B series for 19+ Aged Out N o longer eligible based on patient's age to complete this topic Insurance MEDICARE PART A HB ONLY MEDICARE PART B HB ONLY MEDICARE PB ONLY Care Teams Waistline Joiner Relationship Specialty Start Date End Date Sarah Lozano MD [address] [place] [address] PCP - General Internal Medicine 08/23/16
--- NOTE | 2024-10-08 08:48 | CRLHL7_ITS ---
For Patients: As a result of the Cures Act, medical imaging exams and procedure reports are released immediately into your electronic medical record. You may view this report before your referring provider. If you have questions, please contact your health care provider. INDICATION: Fall. COMPARISON: 05/17/2022 TECHNIQUE: CT of the cervical spine without contrast. Multiplanar axial, coronal, and sagittal reformats were reconstructed. FINDINGS: No fracture. Normal alignment. Multilevel disc degenerative change. Multilevel facet arthritis. No severe osseous neural foraminal narrowing. No significant central canal stenosis. No destructive bony lesions. No cervical prevertebral soft tissue swelling. IMPRESSION: No acute or traumatic findings on cervical spine CT. Please note that all CT scans at this facility use dose modulation, iterative reconstruction, and/or weight-based dosing when appropriate to reduce radiation dose to as low as reasonably achievable. Dictated by Day King MD @ 10/08/2024 9:24:49 AM (Electronically Signed)
--- NOTE | 2024-10-08 08:48 | CRLHL7_ITS ---
For Patients: As a result of the Century Cures Act, medical imaging exams and procedure reports are released immediately into your electronic medical record. You may view this report before your referring provider. If you have questions, please contact your health care provider. INDICATION: Fall. COMPARISON: 05/17/2022 TECHNIQUE: CT of the facial bones without contrast. Multiplanar axial, coronal, and sagittal reformats were reconstructed. Contrast: None. FINDINGS: BONES: Healed nasal bone fracture. There is some residual deformity of the nasal bones. No focal bone lesions. Normal temporomandibular joint alignment. ORBITS AND GLOBES: Right eye: Normal shape and position of globe. The lens is orthotopically located. No retrobulbar hematoma. The extraocular muscles have a normal course and caliber without signs of entrapment. Left eye: Normal shape and position of globe. The lens is orthotopically located. No retrobulbar hematoma. The extraocular muscles have a normal course and caliber without signs of entrapment. TEMPORAL BONES: Right ear: The external auditory canal is patent. There is normal pneumatization and aeration of the mastoid air cells and middle ear cavity. The ossicles appear normally positioned. The semicircular canals and cochlea are normally formed. No bony dehiscence. The vestibular aqueduct is of a normal size. The bony internal auditory canal is normal. Left ear: The external auditory canal is patent. There is normal pneumatization and aeration of the mastoid air cells and middle ear cavity. The ossicles appear normally positioned. The semicircular canals and cochlea are normally formed. No bony dehiscence. The vestibular aqueduct is of a normal size. The bony internal auditory canal is normal. PARANASAL SINUS: Small left maxillary mucocele. The nasal septum is not deviated. SOFT TISSUES: No soft tissue swelling. No soft tissue mass. No foreign body. Normal appearance of the parotid and salivary glands. DENTITION: No abscess. IMPRESSION: No acute facial bone fractures. Please note that all CT scans at this facility use dose modulation, iterative reconstruction, and/or weight-based dosing when appropriate to reduce radiation dose to as low as reasonably achievable. Dictated by Day King MD @ 10/08/2024 9:30:27 AM (Electronically Signed)
--- NOTE | 2024-10-08 08:48 | CRLHL7_ITS ---
For Patients: As a result of the Century Cures Act, medical imaging exams and procedure reports are released immediately into your electronic medical record. You may view this report before your referring provider. If you have questions, please contact your health care provider. INDICATION: Fall. COMPARISON: Same-day head CT and cervical spine CT, prior head CT and facial bone CT 05/17/2022 TECHNIQUE: CT of the brain / head without intravenous contrast. Multiplanar axial, coronal, and sagittal reformats were reconstructed. FINDINGS: No intracranial hemorrhage. Age-related parenchymal atrophy. No acute or subacute cortically based infarct. Scattered white matter hypodensities may be related to chronic microvascular ischemia. No mass or mass effect. Normal ventricles. No skull fractures. No worrisome focal bone lesion. Chronic healed nasal bone fractures. Please see facial bone CT for more details. IMPRESSION: No intracranial hemorrhage. No calvarial fractures. Please note that all CT scans at this facility use dose modulation, iterative reconstruction, and/or weight-based dosing when appropriate to reduce radiation dose to as low as reasonably achievable. Dictated by Day King MD @ 10/08/2024 9:21:58 AM (Electronically Signed)
--- NOTE | 2024-10-08 08:51 | ED.GENADULT ---
HPI - General Adult General Chief complaint: Fall/Minor Trauma Stated complaint: Fall Time Seen by Provider: 10/08/24 08:42 History of Present Illness HPI narrative: 81-year-old woman presenting to the emergency department following a fall. Trauma team activation upon arrival. Arrives via EMS. Apparently was out for a walk this morning. Was found on the ground by a neighbor who alerted EMS. Does not recall events around this fall. Presumed loss of consciousness. No sense of chest pain or shortness of breath. Currently with some pain in her face where she seems to have fallen on her mouth and left cheek/infraorbital area. Has sustained lacerations to lips it appears. Without neck back or abdominal pain. No visual changes. Related Data Home Medications ?Medication ?Instructions ?Recorded ?Confirmed calcium carb-ergocalciferol (vit tab PO DAILY 05/04/24 06/08/24 D2) 600 mg calcium-200 unit tablet multivitamin with minerals 1 tab PO DAILY 05/04/24 06/08/24 (Multiple Vitamin-Minerals tablet) amlodipine 5 mg tablet 5 mg PO DAILY 10/08/24 10/08/24 simvastatin 10 mg tablet 10 mg PO HS 10/08/24 10/08/24 valsartan 80 mg tablet 80 mg PO DAILY 10/08/24 10/08/24 Previous Rx's ?Medication ?Instructions ?Recorded alendronate 70 mg tablet 70 mg PO QWEEK #12 tabs 05/04/24 omeprazole 20 mg capsule,delayed 20 mg PO DAILY #90 caps 05/04/24 release Allergies Allergy/AdvReac Type Severity Reaction Status Date / Time Sulfa (Sulfonamide Allergy Verified 06/08/24 13:31 Antibiotics) Review of Systems Status of ROS: Reports: 6 or more systems reviewed and unremarkable except as noted in History and below [facility] Medical History History of colon polyps ?Z86.010 - Personal history of colonic polyps (ICD-10) Surgical History History of cataract surgery ?Z98.49 - Cataract extraction status, unspecified eye (ICD-10) Varicose veins of other specified sites (10/14/08) ?I86.8 - Varicose veins of other specified sites (ICD-10) Social History What is your current living situation?: I presently have a place to live Problems where you live: no known problems In the past 12 months, utilities in danger of being shut off: no In past 12 months, lack of transportation kept you from medical appts, meetings, work, or getting things needed for daily living: no In the past 12 mos, have been you worried that your food would run out before you had money to buy more?: never true In the past 12 mos, the food you bought just didn't last and you didn't have money to buy more?: never true Smoking Status: Unknown if ever smoked How often does anyone, including family, friends and others, physically hurt you: never How often does anyone, including family, friends and others, insult or talk down to you: never How often does anyone, including family, friends and others, threaten you with harm: never How often does anyone, including family, friends and others, scream or curse at you: never Exam Narrative: Exam Narrative: Primary survey Vitals are noted. Is breathing easily. Airway appears to be open. Has dried blood on her white T-shirt and blood about her face. Laceration apparent at her lip. GCS of 15. Pupils are brisk and equal. Eyes are bright consistent with lens implantation. Moving all extremities voluntarily with good strength. Secondary survey Cranial nerves 2-12 intact Head with dried blood about as noted. She has a 1 cm laceration that I think is from Internal puncture of her lip. This is at the left upper lip. Inverting the lip shows laceration extending to the vermilion aspect of her lip from inside. T-shaped total 3.5 cm. Bleeds lightly. Dentition is sore in the anterior left upper teeth but appears to be intact without any movement. Light bruising with mild discomfort to palpation at the left infraorbital rim outer aspect. Extraocular movements are full. Neck is without tenderness in a C-collar. No fluid at external ear canals. No Blanco sign. Lungs are clear. Heart in regular rhythm but seems to have some ectopic beats. No pain to palpation about the clavicles or shoulders. No pain to palpation of arms or legs. She does have a light abrasion at the upper right knee and maybe a subtle on the upper left knee. No swelling here. No pain to palpation over the chest or abdomen which is soft. No pain or instability to palpation over hips. Back is also nontender to palpation and without deformity. [place] woozy or little dizzy when went to sit up. Const: Vital Signs, click to edit/add: Vital Signs - 24 hr 10/08/24 08:48 10/08/24 08:50 10/08/24 08:53 Temperature 96.9 F L Pulse Rate 90 Pulse Rate [Pulse Oximeter] 93 Pulse Rate [orthos tatic lying] Pulse Rate [orthos tatic sitting] Pulse Rate [orthos tatic standing] Respiratory Rate 22 18 24 Blood Pressure 198/110 H 204/117 H Blood Pressure [Le ft Upper Arm] 198/110 H Blood Pressure [or thostatic lying] Blood Pressure [or thostatic sitting] Blood Pressure [or thostatic standing ] Pulse Oximetry 97 [facility] 10/08/24 09:12 10/08/24 09:16 10/08/24 09:18 Temperature Pulse Rate 87 90 87 Pulse Rate [Pulse Oximeter] Pulse Rate [orthos tatic lying] Pulse Rate [orthos tatic sitting] Pulse Rate [orthos tatic standing] Respiratory Rate 12 29 H 21 Blood Pressure 193/98 H 205/103 H 203/112 H Blood Pressure [Le ft Upper Arm] Blood Pressure [or thostatic lying] Blood Pressure [or thostatic sitting] Blood Pressure [or thostatic standing ] Pulse Oximetry 97 96 98 [facility] 10/08/24 09:19 10/08/24 09:26 10/08/24 09:32 Temperature Pulse Rate 83 Pulse Rate [Pulse Oximeter] Pulse Rate [orthos tatic lying] 88 Pulse Rate [orthos tatic sitting] 88 Pulse Rate [orthos tatic standing] 87 Respiratory Rate 13 Blood Pressure 196/112 H 162/124 H Blood Pressure [Le ft Upper Arm] Blood Pressure [or thostatic lying] 205/103 H Blood Pressure [or thostatic sitting] 203/112 H Blood Pressure [or thostatic standing ] 196/112 H Pulse Oximetry 98 [facility] 10/08/24 09:42 10/08/24 09:53 10/08/24 10:00 Temperature Pulse Rate 82 85 84 Pulse Rate [Pulse Oximeter] Pulse Rate [orthos tatic lying] Pulse Rate [orthos tatic sitting] Pulse Rate [orthos tatic standing] Respiratory Rate 12 12 17 Blood Pressure 176/90 H 187/90 H Blood Pressure [Le ft Upper Arm] Blood Pressure [or thostatic lying] Blood Pressure [or thostatic sitting] Blood Pressure [or thostatic standing ] Pulse Oximetry 98 98 98 Oxygen Delivery Me [facility] 10/08/24 10:02 10/08/24 10:13 10/08/24 10:22 Temperature Pulse Rate 84 85 84 Pulse Rate [Pulse Oximeter] Pulse Rate [orthos tatic lying] Pulse Rate [orthos tatic sitting] Pulse Rate [orthos tatic standing] Respiratory Rate 11 L 10 L 13 Blood Pressure 186/90 H 187/79 H 180/84 H Blood Pressure [Le ft Upper Arm] Blood Pressure [or thostatic lying] Blood Pressure [or thostatic sitting] Blood Pressure [or thostatic standing ] Pulse Oximetry 97 98 99 Oxygen Delivery Me thod 10/08/24 10:32 Temperature Pulse Rate 82 Pulse Rate [Pulse Oximeter] Pulse Rate [orthos tatic lying] Pulse Rate [orthos tatic sitting] Pulse Rate [orthos tatic standing] Respiratory Rate 20 Blood Pressure 184/86 H Blood Pressure [Le ft Upper Arm] Blood Pressure [or thostatic lying] Blood Pressure [or thostatic sitting] Blood Pressure [or thostatic standing ] Pulse Oximetry 99 Oxygen Delivery Me [facility] Documenting provider has reviewed patient's vital signs: yes Course Vital Signs Vital signs: Initial Vital Signs Respiratory Rate 10/08/24 08:48 Blood Pressure 198/110 H 10/08/24 08:48 Blood Pressure Mean 139 H 10/08/24 08:48 Vital Signs Respiratory Rate 10/08/24 08:48 Blood Pressure 198/110 H 10/08/24 08:48 Temperature 96.9 F L 10/08/24 08:50 Pulse Rate 90 10/08/24 13:02 Respiratory Rate 11 L 10/08/24 13:02 Blood Pressure 168/81 H 10/08/24 13:02 Pulse Oximetry 97 10/08/24 13:02 Oxygen Delivery Method Room Air 10/08/24 08:50 Medications Administered Medications: Discontinued Medications Generic Name Dose Route Start Last Admin Trade Name Freq PRN Reason Stop Dose Admin Sodium Chloride 500 mls @ 1,000 mls/hr 10/08/24 10:14 10/08/24 10:50 0.9 % Sodium Chloride 500 Ml IV 10/08/24 10:43 Infused .Q30M ONE Infusion Medical Decision Making MDM Narrative Medical decision making narrative: Will need repair of her lip. Dentition looks intact; possibly concussed. Will need to image head face and neck. Monitor on monitoring coordinator for potential event. Mentating well. Unclear with loss of consciousness and memory around this event whether not fall was related to primary syncopal event or trip and fall closed head injury and loss of consciousness. Initial EKG generally reviewed by me looks shows sinus rhythm; she does have PVC. Rate of 90. I do not see acute ischemic changes here. Family consulted. Apparently has been having some dizzy spells intermittent for some time. Orthostatics are normal although does feel little woozy when she goes to sit up Did independently review images. No acute abnormality appreciated. Radiology over-read cervical spine CT, facial CT, head CT is without acute abnormalities. Did return to place an infraorbital block below the left eye; buccal approach. Injected a weal of 1.5 mL. Well tolerated. Reassessment has resulted with good anesthesia to the buccal surface of the lip but still little sensitive to the laceration on the skin surface of the lip. Did place another mL of lidocaine into the skin surface of her lip. Adequate anesthesia achieved. Proceeded with cleansing with Shur-Clens equivalent solution. Sutured with 6 0 Vicryl interrupted sutures to repair buccal mucosa. External laceration closed with 2 5-0 interrupted Ethilon sutures. Good wound approximation. Bleeding controlled. Well tolerated. No events on monitoring coordinator during time of monitoring in emergency department. Over time more bruising noted at her left chin and bruising and swelling increasing in the left periorbital area. Ice pack dispensed. She was able to ambulate about the emergency department quite well at least with a walker. There is a walker present in the home. Son will be with her in the short term. I expect these sutures placed inside your lip to dissolve/fall out. The ones on the outside can be removed in 6-7 days. Consider keeping this wound moist with antibiotic ointment for for 5 days. Otherwise keep abraded lips moistened with white petroleum jelly or similar. Take care in transitions. I do think that at least in the short term you need to be very careful in getting about and only with your 's walker; I would ask somebody to go to the basement to retrieve it for you. Stay well-hydrated. Return for severe headache, visual changes, repeated vomiting, worsening weakness. Lab Data Labs: Lab Results 10/08/24 10/08/24 10/08/24 Range/Units 08:48 08:50 09:25 WBC 5.49 (4.50-11.00) K/uL RBC 4.39 (4.00-5.20) m/uL Hgb 14.0 (12.0-16.0) gm/dL Hct 42.4 (33.0-51.0) % MCV 97 (80-100) fL MCH 32 (26-34) pg MCHC 33 (32-36) gm/dL RDW Coeff of Braxton 12.5 (11.5-15.5) % Plt Count 136 L (140-440) K/uL Neut % (Auto) 47.1 (42.0-72.0) % Lymph % (Auto) 42.4 (20-44) % [place] % (Auto) 8.4 (0.0-11.0) % Eos % (Auto) 1.5 (0.0-7.0) % Baso % (Auto) 0.4 (0.0-3.0) % Neut # (Auto) 2.59 (1.7-7.0) K/uL Lymph # (Auto) 2.33 (0.90-2.90) K/uL [place]ley # (Auto) 0.50 (0.00-0.90) K/UL Eos # (Auto) 0.08 (0.00-0.50) K/uL Baso # (Auto) 0.02 (0.00-0.30) K/uL Abs Immat Gran (auto) 0.01 (0.00-0.30) K/uL Imm/Tot Granulo (auto) 0.2 % Sodium 132 L (135-149) mmol/L Potassium 3.6 (3.6-5.1) mmol/L Chloride 99 (96-114) mmol/L Carbon Dioxide 25 (20-32) mmol/L Anion Gap 8 (7-15) mEq/L BUN 15 (7-30) mg/dL Creatinine 0.4 L (0.5-1.5) mg/dL Estimated Creat Clear 30.76 Estimated GFR 95 ml/min Glucose 123 H (60-115) mg/dL Calcium 9.3 (8.4-10.6) mg/dL Troponin I < 0.01 (0.01-0.04) ng/mL NT-Pro-B Natriuret Pep 108 (See Note) pg/mL Urine Color Yellow (Yellow) Urine Appearance Clear (Clear) Urine pH 7.5 (5.0-8.5) Ur Specific [place] 1.020 (1.000-1.030) Urine Protein Negative (Negative) Urine Glucose (UA) Negative (Negative) Urine Ketones Negative (Negative) Urine Blood Negative (Negative) Urine Nitrite Negative (Negative) Urine Bilirubin Negative (Negative) Urine Urobilinogen 0.2 (0.2-1.0) Ur Leukocyte Esterase Negative (Negative) Urine RBC 0-2 (0-2) Urine WBC 0-2 (0-5) Ur Squamous Epith Cells None (None-Few) Urine Bacteria None (None) POC Troponin I 0.01 (0.01-0.04) ng/ml Discharge Plan Discharge Clinical Impression: Closed head injury, Syncope, Lightheadedness, Hypertension, Laceration of lip, Contusion Patient Disposition: Home w/ Parent or Adult Condition: Improved Additional Instructions: I expect these sutures placed inside your lip to dissolve/fall out. The ones on the outside can be removed in 6-7 days. Consider keeping this wound moist with antibiotic ointment for for 5 days. Otherwise keep abraded lips moistened with white petroleum jelly or similar. Take care in transitions. I do think that at least in the short term you need to be very careful in getting about and only with your 's walker; I would ask somebody to go to the basement to retrieve it for you. Stay well-hydrated. Return for severe headache, visual changes, repeated vomiting, worsening weakness. Prescriptions: No Action alendronate 70 mg tablet 70 mg PO QWEEK Qty: 12 3RF omeprazole 20 mg capsule,delayed release(DR/EC) 20 mg PO DAILY Qty: 90 3RF Rx Instructions: take on empty stomach 30-45 min before first meal of the day calcium carbonate-vitamin D2 600 mg calcium- 200 unit tablet PO DAILY Multiple Vitamin-Minerals Tablet 1 tab PO DAILY simvastatin 10 mg tablet 10 mg PO HS valsartan 80 mg tablet 80 mg PO DAILY amlodipine 5 mg tablet 5 mg PO DAILY Follow Up/Referrals: Sarah Lozano MD [Primary Care Provider, Internal Medicine] Stand Alone Forms: [employer] Info Instructions
[2024-10-08 08:58] LABS: Hematocrit 42.4 % (33.0-51.0); Hemoglobin* 14.0 gm/dL (12.0-16.0); Immature Granulocytes Abs Auto 0.01 K/uL (0.00-0.30); Immature Granulocytes Pct Auto 0.2 %; Lymphocytes Absolute Auto 2.33 K/uL (0.90-2.90); Mean Corpuscular HGB Conc 33 gm/dL (32-36); Mean Corpuscular Hemoglobin 32 pg (26-34); Mean Corpuscular Volume 97 fL (80-100); RDW Coefficient of Variation % 12.5 % (11.5-15.5); Red Blood Count 4.39 m/uL (4.00-5.20); White Blood Count* 5.49 K/uL (4.50-11.00)
[2024-10-08 09:01] LABS: Slide Review Reflex No
[2024-10-08 09:04] LABS: Troponin, Point-of-Care* 0.01 ng/ml (0.01-0.04)
[2024-10-08 09:12] LABS: Chloride* 99 mmol/L (96-114); Potassium* 3.6 mmol/L (3.6-5.1); Sodium* 132 mmol/L (135-149)
[2024-10-08 09:15] LABS: Anion Gap 8 mEq/L (7-15); Blood Urea Nitrogen* 15 mg/dL (7-30); Carbon Dioxide* 25 mmol/L (20-32); Creatinine* 0.4 mg/dL (0.5-1.5); Est. Creatinine Clearance* 30.76; Estimated Glomerular Filt Rate 95 ml/min
[2024-10-08 09:16] LABS: Calcium* 9.3 mg/dL (8.4-10.6); Glucose* 123 mg/dL (60-115)
[2024-10-08 09:31] LABS: NT Pro B Type NatriureticPept* 108 pg/mL (See Note)
[2024-10-08 09:35] LABS: Appearance Urine Clear (Clear)
[2024-10-08] MEDS: 0.9 % SODIUM CHLORIDE 500 ML 500 ML 1000 ML IV (10:27)
== END 2024-10-08 13:25 | disposition home or self-care (01) ==
PROVIDERS: Emergency Provider Family Medicine; PCP Internal Medicine
DX: S01.511A Laceration without foreign body of lip, initial encounter (principal); R42 Dizziness and giddiness; I10 Essential (primary) hypertension; W19.XXXA Unspecified fall, initial encounter
CPT/HCPCS: 12011; 36415; 70450; 70486; 72125; 80048; 81001; 83880; 84484; 85025; 93005; 99284; 99285; 99291; G0390; J7030

== ENCOUNTER 2024-12-15 12:41 | Outpatient (CLI) | payer MEDICARE, OTHER, SELFPAY ==
[2024-12-15] MEDS: DOBUTamine 250 MG in 5 % DEXTROSE 250 ML 230 ML 34.8 MG IVPB (13:44)
[2024-12-15] MEDS: SODIUM CHLORIDE 0.9 % (FLUSH) 10 ML SYRINGE IVF (13:46)
[2024-12-15 13:49] VITALS: BP 161/71; PULSE 103; RESP 18
--- NOTE | 2024-12-15 14:51 | W.PM.STED ---
Stress Test Note Date Date of test: 12/15/24 Providers Primary care provider: Sarah Lozano Stress test physician: Kev Che Stress Test Note Stress test ordered: Dobutamine Echo Indication for test: Ventricular tachycardia Results discussion: This very nice patient presents for the above test, after discussion the risks benefits and side effects of the test, patient would like to continue. Cardiac stress test medical history form is reviewed entirely. Pretest EKG shows normal sinus rhythm, ventricular rate 65, blood pressure 169/79. No acute ST wave changes are noted. Standard dobutamine protocol is done for a time course of 6 minutes, up to 30 mcg of dobutamine was use, maximum heart rate was 125, which is 111% of the maximum at 6:50 a.m. maximum blood pressure is 183/76, patient tolerated this well, with no complications. Total time was 10 minutes. Review of the tracing did not show any some appreciable ST wave changes suggestive of ischemia. There were no dysrhythmias. She recovered well and was subjectively negative. Impression: Negative electrographic portion of dobutamine echo, subjectively negative Follow up suggested: Await echo images clinical correlation with these be needed, patient did well there were no complications, left this facility in good condition
== END 2024-12-15 13:51 | disposition home or self-care (01) ==
LOC: STRESS 12:43
PROVIDERS: PCP Internal Medicine; Visit Provider Internal Medicine Cardiovascular Disease
DX: I47.29 Other ventricular tachycardia (principal); I07.1 Rheumatic tricuspid insufficiency; I10 Essential (primary) hypertension
CPT/HCPCS: 93016; 93325; 93351; J1250; J7050